=== PATIENT | female | born 1950 | race Caucasian/White ===

== ENCOUNTER 2021-04-22 01:59 | Inpatient (IN) | payer OTHER, MEDICARE ==
[~2021-04-22] VITALS: Ht 172.7 cm; Wt 87.2 kg
[~2021-04-22 01:59] MED LIST: ASPI81CH43; HYDR25TA4; METH5TAB2; METO-158; QUIN20TA3; SIMV5TAB38
[2021-04-22 04:09] LABS: Basophils # (auto) 0 10 ^3/uL (0-0.2); Hemoglobin 9.6 g/dL (12.2-16.2); White Blood Cell 5.2 10^3/uL (4.4-10.8)
[2021-04-22 04:11] LABS: Basophils % (auto) 0.3 % (0.0-2.0); Eosinophils # (auto) 0.1 10 ^3/uL (0-0.8); Eosinophils % (auto) 2.8 % (0.0-7.0); Hematocrit 29.4 % (36.0-46.0); Lymphocytes # (auto) 1.2 10 ^3/uL (0.4-5.4); Lymphocytes % (auto) 22.9 % (10.0-50.0); Mean Corpuscular Hemoglobin 26.6 pg (28.0-32.0); Mean Corpuscular Hgb Conc. 32.8 g/dL (32.0-36.0); Mean Corpuscular Volume 80.9 fL (80.0-100.0); Monocytes # (auto) 0.3 10 ^3/uL (0-1.3); Monocytes % (auto) 6.7 % (0.0-12.0); Neutrophils # (auto) 3.5 10 ^3/uL (1.6-8.6); Neutrophils % (auto) 67.3 % (37.0-80.0); Red Blood Cells 3.63 10^6/uL (4.0-5.20)
[2021-04-22 04:13] LABS: Red Cell Distribution Width 26.8 % (11.8-14.3)
[2021-04-22 04:18] LABS: Albumin 3.4 g/dL (3.4-5.0); BUN/Creatinine Ratio 7.7; Calcium 8.4 mg/dL (8.5-10.1); Potassium 4.3 mmol/L (3.5-5.1)
[2021-04-22 04:20] LABS: Bilirubin, Total 0.8 mg/dL (0.2-1.0); Total Protein 7.5 g/dL (6.4-8.2)
[2021-04-22] MEDS ORDERED: FUROSEMIDE 20 MG/2 ML VIAL IV ONE (11:15)
[2021-04-22] MEDS ORDERED: HYDROcodone-ACET 5/325MG TAB PO ONE (11:15)
[2021-04-22] MEDS ORDERED: LORazepam 0.5 MG TAB PO ONE (11:15)
[2021-04-22 16:27] LABS: Urine Bacteria NONE SEEN /hpf (None Seen); Urine Blood TRACE /uL (Negative); Urine Hyaline Cast FEW /lpf (0 - 2); Urine Specific Gravity 1.015 (1.001-1.035); Urine WBC 12 /hpf (0 - 5)
[2021-04-22] MEDS ORDERED: cefTRIAXone 1GM/50ML D5W 50 ML IV ONE (17:30)
[2021-04-22] MEDS ORDERED: NITROGLYCERIN 0.4 MG SL TAB SL PRN (20:45)
[2021-04-22] MEDS: METOPROLOL TARTRATE 25 MG TAB PO SCH (21:54)
[2021-04-22] MEDS: ATORVASTATIN 20 MG TAB PO SCH (21:58)
[2021-04-23] MEDS ORDERED: TEMAZEPAM 15 MG CAP PO ONE (01:30)
[2021-04-23 03:42] LABS: Albumin 3.4 g/dL (3.4-5.0); Calcium 8.3 mg/dL (8.5-10.1)
[2021-04-23 03:43] VITALS: BP 110/72
[2021-04-23 03:47] LABS: BUN/Creatinine Ratio 7.9; Bilirubin, Total 0.7 mg/dL (0.2-1.0); Total Protein 7.5 g/dL (6.4-8.2)
[2021-04-23 05:00] VITALS: BP 101/55
[2021-04-23 05:41] LABS: Basophils # (auto) 0 10 ^3/uL (0-0.2); Basophils % (auto) 0.3 % (0.0-2.0); Eosinophils # (auto) 0.1 10 ^3/uL (0-0.8); Eosinophils % (auto) 2.6 % (0.0-7.0); Hematocrit 29.9 % (36.0-46.0); Hemoglobin 9.6 g/dL (12.2-16.2); Lymphocytes # (auto) 0.9 10 ^3/uL (0.4-5.4); Mean Corpuscular Hemoglobin 26.2 pg (28.0-32.0); Mean Corpuscular Volume 81.9 fL (80.0-100.0); Monocytes # (auto) 0.3 10 ^3/uL (0-1.3); Monocytes % (auto) 6.9 % (0.0-12.0); Neutrophils # (auto) 3.6 10 ^3/uL (1.6-8.6); Neutrophils % (auto) 71.2 % (37.0-80.0); Nucleated Red Blood Cells % 0.2 %; Red Blood Cells 3.65 10^6/uL (4.0-5.20)
[2021-04-23 06:09] LABS: Red Cell Distribution Width 26.6 % (11.8-14.3)
[2021-04-23 09:00] VITALS: BP 92/49
[2021-04-23] MEDS: HCTZ 25 MG TAB PO SCH (10:00)
[2021-04-23] MEDS: FUROSEMIDE 40 MG TAB PO SCH (10:00)
[2021-04-23] MEDS: METOPROLOL TARTRATE 25 MG TAB PO SCH ×2 (10:00→22:08)
[2021-04-23] MEDS: PANTOPRAZOLE 40 MG TAB PO SCH (10:02)
[2021-04-23] MEDS: ASPirin 81 mg TAB PO SCH (10:03)
[2021-04-23] MEDS: cefTRIAXone 1GM/50ML D5W 50 ML IV SCH (10:03)
[2021-04-23 13:00] VITALS: BP 119/84
[2021-04-23] MEDS ORDERED: LACTULOSE 20Gm/30ML SOLN PO PRN (13:30)
[2021-04-23] MEDS: CALCIUM CARB 500 MG CHEW TAB PO PRN ×2 (14:13→22:08)
[2021-04-23] MEDS: ONDANSETRON HCL 4 MG/2 ML VIAL IV PRN (14:47)
[2021-04-23 17:44] VITALS: BP 113/44
[2021-04-23] MEDS: LORazepam 0.5 MG TAB PO PRN (20:49)
[2021-04-23] MEDS: ATORVASTATIN 20 MG TAB PO SCH (22:07)
[2021-04-23 22:19] VITALS: BP 108/66
[2021-04-24] MEDS: ACETAMINOPHEN 325 MG TAB PO PRN ×2 (00:54→11:54)
[2021-04-24] MEDS: LORazepam 0.5 MG TAB PO PRN ×2 (04:23→20:11)
[2021-04-24 05:29] VITALS: BP 118/81
[2021-04-24 09:00] VITALS: BP 126/85
[2021-04-24] MEDS: cefTRIAXone 1GM/50ML D5W 50 ML IV SCH (09:02)
[2021-04-24] MEDS: ASPirin 81 mg TAB PO SCH (09:02)
[2021-04-24] MEDS: FUROSEMIDE 40 MG TAB PO SCH (09:04)
[2021-04-24] MEDS: HCTZ 25 MG TAB PO SCH (09:04)
[2021-04-24] MEDS: PANTOPRAZOLE 40 MG TAB PO SCH (09:06)
[2021-04-24] MEDS: METOPROLOL TARTRATE 25 MG TAB PO SCH ×2 (09:07→22:00)
[2021-04-24] MEDS: FLUTICASONE PROP NASAL SPR 0.05 % (50MCG) 16GM EACHNOSTRI SCH ×2 (11:22→20:20)
[2021-04-24] MEDS: ONDANSETRON HCL 4 MG/2 ML VIAL IV PRN (12:57)
[2021-04-24 13:00] VITALS: BP 118/60
[2021-04-24] MEDS: CALCIUM CARB 500 MG CHEW TAB PO PRN ×2 (14:41→20:34)
[2021-04-24 17:00] VITALS: BP 122/52
[2021-04-24] MEDS: ATORVASTATIN 20 MG TAB PO SCH (21:59)
[2021-04-24 22:07] VITALS: BP 111/79
[2021-04-25] MEDS: LORazepam 0.5 MG TAB PO PRN ×3 (04:59→22:26)
[2021-04-25 05:05] VITALS: BP 126/67
[2021-04-25 09:00] VITALS: BP 107/66
[2021-04-25] MEDS: cefTRIAXone 1GM/50ML D5W 50 ML IV SCH (09:27)
[2021-04-25] MEDS: FUROSEMIDE 40 MG TAB PO SCH (09:27)
[2021-04-25] MEDS: HCTZ 25 MG TAB PO SCH (09:27)
[2021-04-25] MEDS: ASPirin 81 mg TAB PO SCH (09:27)
[2021-04-25] MEDS: METOPROLOL TARTRATE 25 MG TAB PO SCH ×2 (09:28→22:25)
[2021-04-25] MEDS: PANTOPRAZOLE 40 MG TAB PO SCH (09:28)
[2021-04-25 13:00] VITALS: BP 117/85
[2021-04-25] MEDS: FLUTICASONE PROP NASAL SPR 0.05 % (50MCG) 16GM EACHNOSTRI SCH ×2 (13:13→22:25)
[2021-04-25] MEDS: CALCIUM CARB 500 MG CHEW TAB PO PRN ×2 (14:51→19:44)
[2021-04-25 17:00] VITALS: BP 105/72
[2021-04-25 22:00] VITALS: BP 131/76
[2021-04-25] MEDS: ATORVASTATIN 20 MG TAB PO SCH (22:25)
[2021-04-25] MEDS: ACETAMINOPHEN 325 MG TAB PO PRN (23:33)
[2021-04-26] MEDS: CALCIUM CARB 500 MG CHEW TAB PO PRN ×4 (01:39→22:04)
[2021-04-26] MEDS: ONDANSETRON HCL 4 MG/2 ML VIAL IV PRN (02:00)
[2021-04-26 05:00] VITALS: BP 118/75
[2021-04-26] MEDS ORDERED: HYDR-4833 PO (08:29)
[2021-04-26] MEDS ORDERED: ROPI0.5T18 PO (08:29)
[2021-04-26] MEDS ORDERED: SENN1TAB14 PO (08:29)
[2021-04-26] MEDS ORDERED: PROC10TA2 PO (08:29)
[2021-04-26] MEDS ORDERED: METH5TAB2 PO (08:29)
[2021-04-26] MEDS ORDERED: LORA1TAB23 PO (08:29)
[2021-04-26] MEDS ORDERED: AMIO200T33 PO (08:29)
[2021-04-26] MEDS ORDERED: TEMA30CA PO (08:29)
[2021-04-26] MEDS ORDERED: HAL1T PO (08:29)
[2021-04-26] MEDS: PANTOPRAZOLE 40 MG TAB PO SCH (08:58)
[2021-04-26] MEDS: METOPROLOL TARTRATE 25 MG TAB PO SCH ×2 (08:59→21:55)
[2021-04-26] MEDS: HCTZ 25 MG TAB PO SCH (08:59)
[2021-04-26] MEDS: cefTRIAXone 1GM/50ML D5W 50 ML IV SCH (08:59)
[2021-04-26 09:00] VITALS: BP 109/64
[2021-04-26] MEDS: AMIODARONE HCL 200 MG TAB PO SCH ×2 (09:00→21:54)
[2021-04-26] MEDS: ASPirin 81 mg TAB PO SCH (09:00)
[2021-04-26] MEDS: FUROSEMIDE 40 MG TAB PO SCH (09:01)
[2021-04-26] MEDS: FLUTICASONE PROP NASAL SPR 0.05 % (50MCG) 16GM EACHNOSTRI SCH ×2 (10:22→21:54)
[2021-04-26 13:00] VITALS: BP 119/60
[2021-04-26] MEDS: METHADONE HCL 10 MG TAB PO SCH ×2 (13:54→21:55)
[2021-04-26] MEDS: ACETAMINOPHEN 325 MG TAB PO PRN ×2 (14:51→23:39)
[2021-04-26 17:00] VITALS: BP 119/51
[2021-04-26] MEDS: LORazepam 0.5 MG TAB PO PRN (17:02)
[2021-04-26] MEDS: ATORVASTATIN 20 MG TAB PO SCH (21:55)
[2021-04-26 22:00] VITALS: BP 108/67
[2021-04-26] MEDS: ALBUTEROL SULF 2.5 MG/0.5ML(0.5%) NEB SOLN NEB PRN (22:51)
[2021-04-27] MEDS: LORazepam 0.5 MG TAB PO PRN ×3 (01:11→19:08)
[2021-04-27 05:00] VITALS: BP 104/67
[2021-04-27] MEDS: METHADONE HCL 10 MG TAB PO SCH ×2 (05:05→17:26)
[2021-04-27 09:00] VITALS: BP 110/65
[2021-04-27] MEDS: cefTRIAXone 1GM/50ML D5W 50 ML IV SCH (09:09)
[2021-04-27] MEDS: AMIODARONE HCL 200 MG TAB PO SCH (09:10)
[2021-04-27] MEDS: FLUTICASONE PROP NASAL SPR 0.05 % (50MCG) 16GM EACHNOSTRI SCH (09:10)
[2021-04-27] MEDS: ASPirin 81 mg TAB PO SCH (09:10)
[2021-04-27] MEDS: HCTZ 25 MG TAB PO SCH (09:11)
[2021-04-27] MEDS: FUROSEMIDE 40 MG TAB PO SCH (09:12)
[2021-04-27] MEDS: PANTOPRAZOLE 40 MG TAB PO SCH (09:13)
[2021-04-27] MEDS: METOPROLOL TARTRATE 25 MG TAB PO SCH (09:13)
[2021-04-27] MEDS: CALCIUM CARB 500 MG CHEW TAB PO PRN (12:03)
[2021-04-27 13:00] VITALS: BP 113/70
[2021-04-27] MEDS: ALBUTEROL SULF 2.5 MG/0.5ML(0.5%) NEB SOLN NEB PRN (15:42)
[2021-04-27 17:00] VITALS: BP 122/72
== END 2021-04-27 19:23 | DRG 291 ==
LOC: ER 01:59 → EDBD 01:59 → EDUNIT# 01:59 → TELE 20:38 → TELE-CENTR 22:55 → CENTRAL 04-26 05:31
PROVIDERS: ADMIT Nurse Practitioner; ATTEND Family Medicine
DX: I13.0 Hypertensive heart and chronic kidney disease with heart failure and stage 1 through stage 4 chronic kidney disease, or unspecified chronic kidney disease (principal); J18.9 Pneumonia, unspecified organism; I50.23 Acute on chronic systolic (congestive) heart failure; N18.4 Chronic kidney disease, stage 4 (severe); N17.9 Acute kidney failure, unspecified; F11.20 Opioid dependence, uncomplicated; I48.20 Chronic atrial fibrillation, unspecified; N39.0 Urinary tract infection, site not specified; J91.8 Pleural effusion in other conditions classified elsewhere; R62.7 Adult failure to thrive; D63.8 Anemia in other chronic diseases classified elsewhere; E11.21 Type 2 diabetes mellitus with diabetic nephropathy; Z51.5 Encounter for palliative care; Z20.822 Contact with and (suspected) exposure to COVID-19; D69.6 Thrombocytopenia, unspecified; E11.22 Type 2 diabetes mellitus with diabetic chronic kidney disease; E66.9 Obesity, unspecified; R82.4 Acetonuria; E78.5 Hyperlipidemia, unspecified; G25.81 Restless legs syndrome; Z90.49 Acquired absence of other specified parts of digestive tract; Z88.1 Allergy status to other antibiotic agents; Z88.5 Allergy status to narcotic agent; Z88.0 Allergy status to penicillin; Z68.27 Body mass index [BMI] 27.0-27.9, adult
CPT/HCPCS: 36415; 71045; 71250; 80053; 81001; 83735; 83880; 84443; 84484; 85025; 85379; 87426; 93005; 93306; 94640; 96365; 96366; 96375; A4618; G0378; J0696; J2405